=== PATIENT | female | born 1990 | race Caucasian/White ===

== ENCOUNTER 2018-12-07 05:01 | Inpatient (IN) ==
--- NOTE | 2018-11-29 18:09 | HP ---
Chief Complaint - Chief Complaint Date of Service: 11/29/18 Time of Service: 17:59 Chief Complaint: RLTCS History of Present Illness: 28 yo at 36 wks scheduled for RLTCS with b/l salpingectomy and possible abdominal scar revision on 12/07/18 due to GHTN. She is scheduled to receive a course of steroids on 12/02 and 12/03. This complicated by anemia, anxiety/depression, GHTN, Obesity (BMI 42, Mallapotti score 3), and prior c/s. Rh positive Rubella Non-immune GBS negative. Medical History (Updated 11/11/18 @ 18:42 by JEISON Vickers) Major depressive disorder, recurrent episode, moderate with anxious distress (Acute) Anxiety (Acute) Influenza vaccination declined by patient (Acute) Onset Date: 06/15/18 History of gestational hypertension (Chronic) Anemia Onset Date: 10/04/18 w/ Gestational hypertension Onset Date: ~2006 Preeclampsia Abscess of vagina Onset Date: Unknown Surgical History: Surgical History (Updated 05/17/18 @ 15:58 by Anam Tavarez DO) Previous section (Chronic) History of incision and drainage Onset Date: 10/29/17 vaginal abscess Hx of section Onset Date: 2006 NRFT- Family History: Family History (Updated 05/17/18 @ 13:28 by Claudia Gill RN) Grandmother , Maternal Breast cancer Mother Alive and well Father Colon cancer, Onset Age: 50 Social History: Preferred Language Pashto Smoking Status Never smoker (Last Updated 11/29/18 @ 15:33 by Anam Tavarez DO) No Social History Section defined Review Of Systems (GEN) - Review of Systems Generalized/Overall Review: Present: Weight gain EENTM: Present: No Symptoms Reported Respiratory: Present: No Symptoms Reported Cardiac: Present: Edema Abdominal: Present: No Symptoms Reported Genitourinary: Present: No Symptoms Reported Musculoskeletal: Present: No Symptoms Reported Neurological: Present: No Symptoms Reported Skin: Present: No Symptoms Reported Endocrine: Present: No Symptoms Reported Allergies/Adverse Reactions: Allergies Allergy/AdvReac Type Severity Reaction Status Date / Time Penicillins Allergy Intermediate Hives Verified 11/29/18 14:10 Home Medications: HOME MEDICATIONS vitamin,calcium,gcmnceoy-ronr-hyksv acid tablet 1 tab PO DAILY 05/17/18 [Last Taken Unknown] hydroxyzine HCl 25 mg tablet 25 mg PO Q4H PRN #60 tab 07/15/18 [Last Taken Unknown] aspirin 81 mg tablet,delayed release 81 mg PO DAILY #30 tab 08/23/18 [Last Taken Unknown] sertraline 50 mg tablet 50 mg PO DAILY #30 tab 09/20/18 [Last Taken Unknown] ferrous sulfate 325 mg (65 mg iron) tablet 325 mg PO DAILY #30 tab 10/05/18 [Last Taken Unknown] Exam - Exam Vital Signs: 11/29/18 Height 1.6 m 11/29/18 Weight 108 kg 11/29/18 Body Mass Index (BMI) 42.2 11/29/18 Blood Pressure 143/89 H 11/29/18 Respiratory Rate 18 11/29/18 Pulse Rate 95 11/29/18 Temperature 36.6 C 11/29/18 O2 Sat by Pulse Oximetry 97 Constitutional: Present: Alert, Oriented x3, Cooperative, No distress ENT Exam: Present: hearing grossly normal Breasts: Present: Exam deferred Respiratory: Present: lungs clear, no respiratory distress Cardiovascular/Chest: Present: normal peripheral pulses, regular rate, rhythm, edema Abdomen: Present: soft, nontender, no rebound tenderness, other - gravid /Rectal: Present: Exam deferred Extremity: Present: no calf tenderness, lower extremity edema - 3+ Skin Exam: Present: normal color, warm/dry, no cyanosis Neurologic: Present: alert, normal mood/affect, oriented x 3, other - DTR - 2/4, no clonus Appearance: Present: appropriate appearance, appropriate insight Eye contact: Present: cooperative, good eye contact, normal speech Thoughts: Present: normal thought pattern Assessment/Plan - Assessment/Plan (1) Previous section Assessment: Admit for RLTCS with b/l salpingectomy and possible abdominal scar revision. Labs to r/o severe features of GHTN. Problem: Chronic (2) Gestational hypertension Problem: Acute Qualifiers: Trimester: third trimester Qualified Code(s): O13.3 - Gestational [-induced] hypertension without significant proteinuria, third trimester (3) Request for sterilization Problem: Acute (4) Major depressive disorder, recurrent episode, in partial remission with anxious distress Problem: Acute (5) Anxiety Problem: Acute
[2018-12-07] MEDS ORDERED: RINGER'S SOLUTION,LACTATED 1,000 ML IV PRN ×2 (05:03)
[2018-12-07] MEDS ORDERED: ceFAZolin SODIUM/DEXTROSE,ISO 2 GM/50 ML BAG IV ONE ×2 (05:03→06:45)
[2018-12-07] MEDS ORDERED: OXYTOCIN 20 UNITS in RINGER'S SOLUTION,LACTATED 1,000 ML IV ONE (05:03)
[2018-12-07 05:31] LABS: Hematocrit 37.1 % (37.0-47.0); Hemoglobin 12.3 gm/dL (12.5-16.0); Mean Corpuscular Hemoglobin 29.5 pg (27-31); Mean Corpuscular Hgb Conc 33.2 g/dl (32-36); Mean Platelet Volume 11.8 fl (8-12.5); Neutrophil # 12.9 K/mm3 (1.3-6.0); Neutrophil % 81.1 % (42-75.0); Platelet Count 207 K/mm3 (150-450); Red Blood Count 4.17 M/mm3 (4.2-5.4); Red Cell Distribution Width 13.1 % (11.5-14.0); White Blood Count 15.8 K/mm3 (4.0-10.5)
[2018-12-07 05:42] LABS: Albumin * 2.5 gm/dl (3.4-5.0); Anion Gap 14.8 mmol/L (6.8-13.8); BUN/Creatinine Ratio 9.5 (9.0-21.6); Bilirubin, Total 0.3 mg/dL (0.0-1.1); Ca. Corrected For Albumin 9.4 mg/dL (8.4-10.2); Calcium * 8.5 mg/dL (7.9-10.9); Carbon Dioxide 24.7 mmol/L (24-32.6); Potassium 3.5 mmol/L (3.4-4.6); Total Protein 6.2 gm/dL (6.2-8.2)
--- NOTE | 2018-12-07 07:21 | ANES ---
Anesthesia Pre Procedure Eval Vitals/Labs: Last Vital Signs Temp 36.3 C 12/07/18 06:15 Pulse 96 12/07/18 06:15 Resp 16 12/07/18 06:15 BP 134/84 12/07/18 06:15 Pulse Ox 96 12/07/18 06:15 HOME MEDICATIONS vitamin,calcium,kuxxxttt-pupt-rsglx acid tablet 1 tab PO DAILY 05/17/18 [Last Taken Unknown] hydroxyzine HCl 25 mg tablet 25 mg PO Q4H PRN #60 tab 07/15/18 [Last Taken Unknown] aspirin 81 mg tablet,delayed release 81 mg PO DAILY #30 tab 08/23/18 [Last Taken Unknown] sertraline 50 mg tablet 50 mg PO DAILY #30 tab 09/20/18 [Last Taken Unknown] ferrous sulfate 325 mg (65 mg iron) tablet 325 mg PO DAILY #30 tab 10/05/18 [Last Taken Unknown] Allergies/Adverse Reactions: Allergies Allergy/AdvReac Type Severity Reaction Status Date / Time Penicillins Allergy Intermediate Hives Verified 12/07/18 05:38 - Planned Procedure Planned Procedure: REPEAT W/BILAT SALP POSS ABDOM SCAR REV Medication List Reviewed:: Yes Allergies Verified: Yes Medical History (Updated 11/29/18 @ 18:09 by Anam Tavarez DO) Major depressive disorder, recurrent episode, moderate with anxious distress (Acute) Anxiety (Acute) Influenza vaccination declined by patient (Acute) Onset Date: 06/15/18 History of gestational hypertension (Chronic) Anemia Onset Date: 10/04/18 w/ Gestational hypertension Onset Date: ~2006 Preeclampsia Abscess of vagina Onset Date: Unknown Surgical History (Updated 11/29/18 @ 18:09 by Anam Tavarez DO) Previous section (Chronic) History of incision and drainage Onset Date: 10/29/17 vaginal abscess Hx of section Onset Date: 2006 NRFT- Family History (Updated 05/17/18 @ 13:28 by Claudia Gill RN) Grandmother , Maternal Breast cancer Mother Alive and well Father Colon cancer, Onset Age: 50 - Family Anesthesia History Family History:: no untoward family reactions to anesthesia - personal history of difficulty inserting spinal , no familial bleeding tendencies, no family history of clotting disorders, no family history of premature - Airway/Neck/Teeth Within Normal Limits:: Yes Teeth Condition: intact Neck Exam: full range of motion Mallampatti Score: 2 Thyromental (T-M) distance: > 6 cm Mandibulo Hyoid distance: > 3 cm - Respiratory Respiratory Physical: lungs clear Smoking Status: Never smoker Sleep Apnea currently treated: No Sleep Apnea by current assessment: No - Cardiovascular Cardiac History: hypertension - gestational Tolerate Activity: Fair Heart Sounds: S1 & S2, Regular - Anesthesia Assessment and Plan ASA Class: PS, II, E Anesthesia Type Plan: Block - Bilateral TAP block for post op pain relief, Spinal
[2018-12-07 07:28] LABS: Cocaine Ur Negative (NEGATIVE); Urine Barbiturate Negative (NEGATIVE); Urine Benzodiazepines Negative (NEGATIVE); Urine Opiates Negative (NEGATIVE); Urine PCP Negative (NEGATIVE); Urine THC Negative (NEGATIVE)
[2018-12-07] MEDS ORDERED: hydrOXYzine HCL 25 MG TABLET PO PRN ×2 (09:37→10:38)
--- NOTE | 2018-12-07 09:44 | OR ---
Operative Report - Dictated Report Narrative: Indication: 28-year-old 2 para 1 at 37 weeks gestation age presents for repeat section with bilateral salpingectomy due to complicated by prior section and gestational hypertension. status: Planned Pre Operative Diagnosis: 37 week intrauterine . Prior section. Gestational hypertension. Morbid obesity. Desires permanent sterilization. Post Operative Diagnosis: Same. Procedure: Repeat low transverse section. Bilateral salpingectomy Surgeon: Morro Tavarez DO Chipping Machine Operator: OR Staff Anesthesia: Spinal, TAP block Estimated Blood Loss: 400 mL Urine Output: 200 mL clear urine Fluids Replacement: 1400 mL Drains: Renteria to gravity Surgical Complications: None Specimens: Placenta to pathology Findings: Female born at 0820 on 12/07/2019 with Apgars 8 and 9, weighing 3914 g in cephalic presentation. Normal uterus, tubes, ovaries Technique: The patient was taken to the operating room and placed in dorsal supine position with a left lateral tilt. After adequate spinal anesthesia, renteria catheter inserted, SCDs placed, and 2 g of Ancef given preoperatively, the abdominal cavity was entered using sharp and blunt dissection. Two rolled laps were placed in the pericolic gutters on either side of the uterus. A transverse incision was made in the lower uterine segment and extended laterally and upwardly with digital traction. Clear fluid was noted upon amniotomy. The infant was delivered easily. The cord was clamped and cut and was handed off to awaiting senior scrum master. The placenta was allowed to deliver spontaneously. The uterus was cleared of clot and debris. Uterine incision was closed with 0 Vicryl using a running stitch. A second imbricating layer was placed. Excellent hemostasis was noted. The rolled laps were removed from the abdominal cavitiy. The right fallopian tube was identified and followed out to the fimbriated end. The proximal end of the fallopian tube approximately 2 cm from the cornual region and mesosalpinx were coagulated with bipolar graspers and transected with Metzenbaum scissors. The exact same was done on the patient's left side. Excellent hemostasis was noted. The peritoneum was closed with a running 3-0 Monocryl. The same suture was used to approximate the rectus and pyramidalis muscles. The fascia was closed with a running 0 Vicryl. The subcutaneous layer was closed with a running 3-0 Monocryl. The same suture was used to approximate the subdermal layer. The skin was closed with a running 4-0 Monocryl and Dermabond. Sponge, lap, needle, and instrument count were correct x 2. Disposition: To post anesthesia care unit in good condition
--- NOTE | 2018-12-07 09:54 | ANES ---
Post Anesthesia Discharge - Transfer of Care Transfer of Care handoff given to nurse: Yes - Discharge from PACU Discharge from PACU when meets criteria: Yes - Comfortable in PACU
--- NOTE | 2018-12-07 09:54 | ANES ---
Anesthesia Procedure Note Procedure Note: ANESTHESIA PROCEDURE NOTE Date of Procedure: 12/07/2018 Time of procedure: 1935 AM. Performed by: RICHELLE Bedoya CRNA, MSN Soft Sugar Supervisor: Claudia Crouch RN. Preprocedure diagnosis: Post section pain. Post procedure diagnosis: Same. Procedure: Bilateral TAP block Indications: Post section pain relief. Findings: See below. Details of the procedure: The patient was brought to PACU and placed in the supine position. The patient was prepped with chlorhexidine and using ultrasound guidance the 3 abdominal muscular planes were identified and lidocaine 1% was infiltrated to the skin of the intended injection site. Under ultrasound guidance the the internal oblique and transverse this abdominis muscle layers were approached with visualization of a 4 inch block needle until the tip of the needle rested in the plane between the muscles. 25 mL bupivacaine 0.5% with 1-200,000 epinephrine was injected and the procedure was repeated on the other side. Please see radiology/ultrasound report for details and images of the procedure. EBL: 0 Fluids: N/A. Specimen: N/A. Post procedure condition: The patient tolerated the procedure well. No complications were noted. Thank you for this consultation. Favio Snyder CRNA, MSN
--- NOTE | 2018-12-07 10:17 | ANES ---
Post Anesthesia Assessment - Vital Signs Vitals: Last Vital Signs Temp 36.6 C 12/07/18 09:55 Pulse 109 H 12/07/18 09:55 Resp 15 12/07/18 09:55 BP 140/73 H 12/07/18 09:55 Pulse Ox 99 12/07/18 09:55 Airway Patency: Normal - Mental Status Level Of Consciousness: Awake, Alert, Appropriate - Pain Level Pain Score: 0 - N/V Assessment Nausea/Vomiting Presence: None Dehydration:: No
[2018-12-07] MEDS ORDERED: BISACODYL 10 MG SUPP.RECT RC PRN (10:38)
[2018-12-07] MEDS ORDERED: oxyCODONE HCL/ACETAMINOPHEN 1 TAB TABLET PO PRN (10:38)
[2018-12-07] MEDS ORDERED: SIMETHICONE 80 MG TAB.CHEW PO PRN (10:38)
[2018-12-07] MEDS ORDERED: ONDANSETRON HCL/PF 2 MG/ML VIAL IV PRN (10:38)
[2018-12-07] MEDS ORDERED: SENNOSIDES 8.6 MG TABLET PO PRN (10:38)
[2018-12-07] MEDS: KETOROLAC TROMETHAMINE 15 MG/ML VIAL IV PRN ×2 (10:48→16:55)
[2018-12-07] MEDS: oxyCODONE HCL/ACETAMINOPHEN 1 TAB TABLET PO PRN ×4 (10:48→23:07)
[2018-12-07] MEDS ORDERED: LABETALOL HCL 5 MG/ML VIAL IV STA (11:06)
[2018-12-07] MEDS: LABETALOL HCL 100 MG TABLET PO SCH ×2 (11:47→23:07)
[2018-12-07 11:55] LABS: Random Urine Total Protein 6.9 mg/dL (0-12)
--- NOTE | 2018-12-07 13:26 | PN ---
Progess Note - Interim Date: 12/07/18 Time: 13:20 Narrative: 12/07/18 13:20 Patient developed severe range blood pressures after delivery but remained asymptomatic. Blood pressures responded well to IV labetalol 10 mg 1 and 100 mg by mouth twice a day Urine output greater than 1200 mL in the past 2.5 hrs DTR-2/4, no clonus 2+ pitting edema - bilateral lower extremities Impression: Status post repeat low transverse section at 39 2/7 weeks developing severe range blood pressures in the period. Plan: Because patient is totally asymptomatic and diuresing well, will hold off starting magnesium at this point but keep on seizure precautions. Reassess in 4 hours.
[2018-12-07] MEDS: ENOXAPARIN SODIUM 40 MG/0.4 ML SYRG SC SCH (16:59)
[2018-12-07] MEDS: DOCUSATE SODIUM 100 MG CAPSULE PO SCH (20:01)
[2018-12-07] MEDS: IBUPROFEN 800 MG TABLET PO PRN (23:05)
[2018-12-08] MEDS: oxyCODONE HCL/ACETAMINOPHEN 1 TAB TABLET PO PRN ×5 (02:53→22:17)
[2018-12-08] MEDS: IBUPROFEN 800 MG TABLET PO PRN ×3 (07:05→22:18)
[2018-12-08] MEDS ORDERED: FERROUS SULFATE 325 MG TABLET PO SCH (09:00)
[2018-12-08] MEDS ORDERED: SERTRALINE HCL 50 MG TABLET PO SCH (09:00)
[2018-12-08] MEDS ORDERED: PRENATAL VITS96/IRON FUM/FOLIC 1 TAB TABLET PO SCH (09:00)
[2018-12-08] MEDS: SERTRALINE HCL 50 MG TABLET PO SCH (12:00)
[2018-12-08] MEDS: PRENATAL VITS96/IRON FUM/FOLIC 1 TAB TABLET PO SCH (12:00)
[2018-12-08] MEDS: DOCUSATE SODIUM 100 MG CAPSULE PO SCH ×2 (12:00→21:16)
[2018-12-08] MEDS: FERROUS SULFATE 325 MG TABLET PO SCH (12:00)
[2018-12-08] MEDS: LABETALOL HCL 100 MG TABLET PO SCH ×2 (12:01→21:16)
--- NOTE | 2018-12-08 12:55 | PN ---
Subjective - Date and Time Seen Date: 12/08/18 Time: 12:47 Objective - Review of Systems Generalized/Overall Review: Reports: No Symptoms Reported EENTM: Reports: No Symptoms Reported Respiratory: Reports: No Symptoms Reported Cardiac: Reports: No Symptoms Reported Abdominal: Reports: Abdominal Pain - mild incisional pain controlled with PO pain meds Genitourinary Symptoms: Reports: No Symptoms Reported Musculoskeletal Complaints: Reports: No Symptoms Reported Neurological: Reports: No Symptoms Reported Skin: Reports: No Symptoms Reported Endocrine: Reports: No Symptoms Reported - Vitals Vitals: Last Vital Signs Temp 36.3 C 12/08/18 07:15 Pulse 96 12/08/18 12:01 Resp 20 12/08/18 07:15 BP 137/95 H 12/08/18 12:11 Pulse Ox 96 12/08/18 07:15 - Exam Constitutional: Present: Alert, Oriented x3, Cooperative, No distress ENT Exam: Present: hearing grossly normal Respiratory: Present: lungs clear, no respiratory distress Cardiovascular/Chest: Present: regular rate, rhythm, no edema Abdomen: Present: soft, no rebound tenderness, other - incision c/d/i /Rectal: Present: Exam deferred Extremity: Present: no pedal edema, no calf tenderness Skin Exam: Present: normal color, warm/dry, no cyanosis Neurologic: Present: alert, oriented x 3, other - DTR 2/4, no clonus Appearance: Present: appropriate appearance, appropriate insight Eye contact: Present: cooperative, good eye contact Thoughts: Present: normal thought pattern Cauti Physician Documentation - Urinary Catheter Management Urethral (Avalos) Urethral Indwelling: Yes Reason for Continuing Indwelling Catheter: Measure accurate output Date of Insertion: 12/07/18 Time of Insertion: 08:00 Assessment/Plan Plan Narrative: BPs stable and improving with a rare elevated BP. Baby being transferred to [facility] for heart murmur and tachypnea - mother anxious. If patient continues to improve clinically will discharge to home tomorrow a.m. so she can be with baby. - Problems/Diagnosis (1) Previous section Problem: Chronic (2) Gestational hypertension Problem: Acute Qualifiers: Trimester: third trimester Qualified Code(s): O13.3 - Gestational [-induced] hypertension without significant proteinuria, third trimester (3) Request for sterilization Problem: Acute (4) Major depressive disorder, recurrent episode, in partial remission with anxious distress Problem: Acute (5) Anxiety Problem: Acute
[2018-12-08] MEDS: ENOXAPARIN SODIUM 40 MG/0.4 ML SYRG SC SCH (17:18)
[2018-12-09] MEDS: oxyCODONE HCL/ACETAMINOPHEN 1 TAB TABLET PO PRN (04:36)
[2018-12-09] MEDS: IBUPROFEN 800 MG TABLET PO PRN (04:36)
[2018-12-09 08:01] VITALS: BP 139/67
--- NOTE | 2018-12-09 09:01 | PN ---
Subjective - Date and Time Seen Date: 12/09/18 Time: 08:58 Objective - Vitals Vitals: Last Vital Signs Temp 36.8 C 12/09/18 07:50 Pulse 98 12/09/18 07:50 Resp 18 12/09/18 07:50 BP 139/67 12/09/18 07:50 Pulse Ox 97 12/09/18 07:50 Patient denies complaints. Ambulating well. Tolerating regular diet. Pain well controlled. Lochia wnl. Abdomen - soft, appropriately tender Incision - clean, dry, intact Uterus - firm, at umbilicus -2 No calf tenderness, 1+ pitting edema b/l LE Impression: Post op day #2 s/p repeat section. Bilateral salpingectomy. Preeclampsia-resolving. Anxiety/depression-stable. Minor P- wave changes noted on telemetry. Plan: Continue routine post-operative/ care. Discharge so mother can be with baby at [place]. Preeclampsia precautions. Continue with blood pressure medicine and follow up for blood pressure check and evaluation in 1 week. Follow-up with her primary care physician for further evaluation of the heart. Cauti Physician Documentation - Urinary Catheter Management Urethral (Avalos) Urethral Indwelling: Yes Date of Insertion: 12/07/18 Time of Insertion: 08:00 Date of Removal: 12/08/18 Time of Removal: 14:13 Assessment/Plan - Problems/Diagnosis (1) Previous section Problem: Chronic (2) Gestational hypertension Problem: Acute Qualifiers: Trimester: third trimester Qualified Code(s): O13.3 - Gestational [-induced] hypertension without significant proteinuria, third trimester (3) Request for sterilization Problem: Acute (4) Major depressive disorder, recurrent episode, in partial remission with anxious distress Problem: Acute (5) Anxiety Problem: Acute
[2018-12-09] MEDS: PRENATAL VITS96/IRON FUM/FOLIC 1 TAB TABLET PO SCH (09:02)
[2018-12-09] MEDS: FERROUS SULFATE 325 MG TABLET PO SCH (09:02)
[2018-12-09] MEDS: DOCUSATE SODIUM 100 MG CAPSULE PO SCH (09:02)
[2018-12-09] MEDS: SERTRALINE HCL 50 MG TABLET PO SCH (09:02)
[2018-12-09] MEDS: LABETALOL HCL 100 MG TABLET PO SCH (09:03)
== END 2018-12-09 09:15 | disposition home or self-care (01) | DRG 785 ==
LOC: OB 05:01
PROVIDERS: ADMIT Obstetrics & Gynecology; ATTEND Obstetrics & Gynecology
CPT/HCPCS: 36415; 59025; 80053; 80307; 82570; 84155; 84156; 85025; 88302; 88307